=== PATIENT | female | born 1950 | race Caucasian/White ===

== ENCOUNTER 2020-12-23 14:15 | Inpatient (IN) | payer MEDICAID ==
[~2020-12-23] VITALS: Ht 162.6 cm; Wt 79.4 kg
[~2020-12-23 14:15] MED LIST: ASPI81TA31 PO; ATOR40TA PO; BENA20TA9 PO; LEVO150T PO
--- NOTE | 2020-12-23 14:23 | NUR ---
[email or web address], medical screening exam in progress
[2020-12-23] MEDS ORDERED: LEVO200T9 PO (14:25)
[2020-12-23] MEDS ORDERED: VITAMIN D (14:25)
[2020-12-23] MEDS ORDERED: IV NORMAL SALINE 1000 ML BAG IV ONE (14:30)
[2020-12-23 14:55] LABS: *BILIRUBIN,URIN NEGATIVE (NEGATIVE); *BLOOD, URINE NEGATIVE (NEGATIVE); *CLARITY,URINE CLEAR (CLEAR); *COLOR,URINE YELLOW (YELLOW); *KETONES,URINE NEGATIVE (NEGATIVE); *UROBILINOGEN,URINE 0.2 E.U./dl (NORMAL); LEUKOCYTE ESTERASE ,URINE 1+ (NEGATIVE); NITRITE, URINE NEGATIVE (NEGATIVE); UGLUCOSE NEGATIVE (NEGATIVE)
[2020-12-23 15:03] LABS: BASOPHILS # (AUTO) 0.1 K/uL (0.0-8.0); BASOPHILS % (AUTO) 0.8 % (0.0-2.0); EOSINOPHILS % (AUTO) 0.2 % (0.0-7.0); HEMATOCRIT 41.4 % (31.2-41.9); LYMPHOCYTES # (AUTO) 2.5 K/uL (20.0-40.0); LYMPHOCYTES % (AUTO) 21.3 % (20.5-51.5); MEAN CORPUSCULAR HEMOGLOBIN 29.7 uug (24.7-32.8); MEAN CORPUSCULAR HGB CONC 34 g/dL (32.3-35.6); MEAN CORPUSCULAR VOLUME 87.9 fL (75.5-95.3); MONOCYTES # (AUTO) 0.8 K/uL (2.0-10.0); MONOCYTES % (AUTO) 6.4 % (0.0-11.0); NEUTROPHILS # (AUTO) 8.4 K/uL (1.8-8.9); NEUTROPHILS % (AUTO) 71.3 % (38.5-71.5); PLATELET COUNT (AUTO) 295 K/uL (179-408); RED BLOOD CELL COUNT(AUTO) 4.71 MIL/uL (3.63-4.92); WHITE BLOOD COUNT (AUTO) 11.8 K/uL (3.8-11.8)
[2020-12-23 15:07] LABS: BACTERIA,URINE NONE SEEN /HPF (NONE SEEN); RBC,URINE 0-3 /HPF (0-3); SQUAMOUS EPITHELIAL CELL,UR FEW /HPF (NONE SEEN); WBC,URINE 0-3 /HPF (0-3)
[2020-12-23 15:13] LABS: CREATININE 1.1 mg/dL (0.6-1.3); POTASSIUM 4.1 mmol/L (3.5-5.1)
[2020-12-23 15:25] LABS: BILIRUBIN,TOTAL 0.9 mg/dL (0.2-1.0); TOTAL PROTEIN, SERUM 7.3 g/dL (6.4-8.2)
[2020-12-23] MEDS ORDERED: ONDANSETRON 4 MG/2 ML VIAL IV PRN (16:00)
[2020-12-23] MEDS ORDERED: ASPIRIN 81 MG TAB.CHEW PO ONE (16:00)
[2020-12-23] MEDS ORDERED: HYDROCODONE/APAP 5-325MG TABLET PO PRN (16:00)
[2020-12-23] MEDS ORDERED: MAGNESIUM HYDROXIDE 30 ML LIQUID UDC PO PRN (16:00)
[2020-12-23] MEDS ORDERED: ACETAMINOPHEN 325 MG TABLET PO PRN (16:00)
[2020-12-23] MEDS ORDERED: Z GUARD REMEDY PASTE 57 GM TUBE TOP PRN (16:00)
[2020-12-23] MEDS ORDERED: ASPIRIN 325 MG TABLET ONE (16:10)
[2020-12-23 16:44] VITALS: BP 145/80
--- NOTE | 2020-12-23 16:45 | NUR ---
Received patient from ED via wheelchair. Patient alert and oriented x 4. on room air. patient denies pain/ discomfort at this time. oriented patient to unit and room. bed locked and in low position. call light within reach. admission assessment done. comfort measures provided. will continue to monitor.
[2020-12-23] MEDS: METOPROLOL TARTRATE 50 MG TABLET PO SCH (18:10)
[2020-12-23] MEDS: ENOXAPARIN SODIUM 80 MG/0.8 ML DISP.SYRIN SQ SCH (18:39)
--- NOTE | 2020-12-23 19:45 | NUR ---
ROUNDS MADE PATIENT IN BED ,AAOX4 PATIENT DENIES CHEST PAIN .SR ON THE HEART MONITOR 88.ON ROOM AIR .PATIENT SON AT B/S AND QUESTION ANSWERED . ADVISED TO CALL FOR ASSISTANCE AND CALL LIGHT PLACED WITH IN REACH .
[2020-12-23 20:14] VITALS: BP 137/80
[2020-12-23] MEDS ORDERED: ATORVASTATIN 40 MG TABLET PO SCH (21:00)
[2020-12-23] MEDS ORDERED: ENOXAPARIN SODIUM 40 MG/0.4 ML DISP.SYRIN SQ SCH (21:00)
--- NOTE | 2020-12-23 21:20 | NUR ---
GIVEN PO MEDICATION TOLERATED WITH APPLE JUICE .
[2020-12-24 00:23] VITALS: BP 144/55
[2020-12-24] MEDS: METOPROLOL TARTRATE 50 MG TABLET PO SCH ×4 (00:44→17:00)
[2020-12-24 04:33] VITALS: BP 110/61
[2020-12-24] MEDS: ENOXAPARIN SODIUM 80 MG/0.8 ML DISP.SYRIN SQ SCH (05:47)
[2020-12-24 06:36] LABS: BASOPHILS % (AUTO) 0.4 % (0.0-2.0); EOSINOPHILS # (AUTO) 0.1 K/uL (0.0-0.7); HEMATOCRIT 38.5 % (31.2-41.9); HEMOGLOBIN 12.9 g/dL (10.9-14.3); LYMPHOCYTES # (AUTO) 3.4 K/uL (20.0-40.0); LYMPHOCYTES % (AUTO) 40.5 % (20.5-51.5); MEAN CORPUSCULAR HEMOGLOBIN 29.9 uug (24.7-32.8); MEAN CORPUSCULAR HGB CONC 34 g/dL (32.3-35.6); MEAN CORPUSCULAR VOLUME 89.3 fL (75.5-95.3); MONOCYTES # (AUTO) 0.8 K/uL (2.0-10.0); MONOCYTES % (AUTO) 9.6 % (0.0-11.0); NEUTROPHILS # (AUTO) 4.1 K/uL (1.8-8.9); NEUTROPHILS % (AUTO) 48.5 % (38.5-71.5); PLATELET COUNT (AUTO) 278 K/uL (179-408); RED BLOOD CELL COUNT(AUTO) 4.32 MIL/uL (3.63-4.92); WHITE BLOOD COUNT (AUTO) 8.4 K/uL (3.8-11.8)
[2020-12-24 07:30] LABS: THYROID STIMULATING HORMONE 6.096 mIU/mL (0.358-3.740)
[2020-12-24 07:47] LABS: BILIRUBIN,TOTAL 0.9 mg/dL (0.2-1.0); CREATININE 0.9 mg/dL (0.6-1.3); MAGNESIUM 2.2 mg/dL (1.8-2.4); PHOSPHOROUS 3.3 mg/dL (2.5-4.9); POTASSIUM 3.7 mmol/L (3.5-5.1); TOTAL PROTEIN, SERUM 6.8 g/dL (6.4-8.2)
[2020-12-24 08:00] VITALS: BP 121/47
[2020-12-24] MEDS ORDERED: ASPIRIN 81 MG TAB.CHEW PO SCH (09:00)
[2020-12-24] MEDS ORDERED: LEVOTHYROXINE SODIUM 200 MCG TABLET PO SCH (09:00)
[2020-12-24] MEDS ORDERED: BENAZEPRIL HCL 20 MG TABLET PO SCH (09:00)
--- NOTE | 2020-12-24 09:25 | NUR ---
Cardio Dr. Ramirez informed of critical troponin 1.476. per , continue current order of Lovenox BID.
--- NOTE | 2020-12-24 11:30 | NUR ---
Informed by charge nurser that per cardio Dr. Ramirez, pt will be going to [facility] for cardiac CTA and stay there for hospital transfer. pt and pt's son aware and verbalized understanding. consent for transfer signed.
[2020-12-24 12:10] VITALS: BP 133/75
--- NOTE | 2020-12-24 13:00 | NUR ---
pt and pt's son informed of picker feeder time between 4:30-5pm by [facility]ise[facility], phone#[phone]. trip# confirmation [id number]. pt will be taken to medical lab specialist then inpatient at [facility]. pt and pt's son verbalized understanding.
[2020-12-24] MEDS ORDERED: METO50TA16 PO (14:53)
[2020-12-24] MEDS ORDERED: RXENO XX (14:53)
[2020-12-24] MEDS ORDERED: ENOX80DI SQ (14:53)
[2020-12-24 16:39] VITALS: BP 174/90
[2020-12-24 17:00] VITALS: BP 166/75
--- NOTE | 2020-12-24 17:20 | NUR ---
received call from [facility] asking if pt was picked up yet. informed them that transportation was delayed and will be picked up around 5:30pm. per [facility], pt needs an 18g IV on the AC. pt's right AC already bruised from previous attempt in ER, no good vein palpated. attempted to insert 18g on pt's left AC and got good blood return however once NS pushed, pt's vein noted to blow, IV removed. no other AC veins found. 2nd attempt of IV succesfully inserted on (R) forearm, 18g, line flushing and patent.
--- NOTE | 2020-12-24 18:00 | NUR ---
pt picked up by [employer] [facility] to be transferred to [facility]. pt left in stable condition. VSS. pt on room, NSR on the monitor. full report given to [employer]. granddaughters at bedside and left with pt.
[2020-12-24] MEDS ORDERED: ENOXAPARIN SODIUM 80 MG/0.8 ML DISP.SYRIN SQ SCH (21:00)
== END 2020-12-24 18:00 | disposition short-term general hospital (02) | DRG 190 ==
LOC: ER 14:15 → TELE3 16:22
PROVIDERS: ADMIT Nurse Practitioner Acute Care; ATTEND Nurse Practitioner Acute Care
DX: I21.4 Non-ST elevation (NSTEMI) myocardial infarction (principal); E03.9 Hypothyroidism, unspecified; I10 Essential (primary) hypertension; E78.5 Hyperlipidemia, unspecified; R55 Syncope and collapse; R73.9 Hyperglycemia, unspecified; R00.2 Palpitations; R78.89 Finding of other specified substances, not normally found in blood; I49.9 Cardiac arrhythmia, unspecified; Z20.822 Contact with and (suspected) exposure to COVID-19; Z79.82 Long term (current) use of aspirin; Z86.73 Personal history of transient ischemic attack (TIA), and cerebral infarction without residual deficits
CPT/HCPCS: 36415; 70030-TC; 71045; 83735; 84100; 84443; 85025; 87086; 93005; 93307; A4663; G0378; J1650; J7030